=== PATIENT | female | born 1980 | race Caucasian/White ===

== ENCOUNTER 2018-04-10 10:57 | Emergency (ER) | payer SELFPAY ==
[2018-04-10 11:11] VITALS: BP 147/77
--- NOTE | 2018-04-10 11:12 | ER Document Report ---
HPI - HPI Patient complains to provider of: Right shoulder pain Onset: Last week Onset/Duration: Gradual, Persistent Pain Level: 4 Context: 37-year-old female complaining of right pain along the trapezius muscle for 1 month. Worse with movement. No radiculopathy Associated Symptoms: None Exacerbated by: Movement Relieved by: Denies Similar symptoms previously: No Recently seen / treated by doctor: No - ROS ROS below otherwise negative: Yes Systems Reviewed and Negative: Yes All other systems reviewed and negative Past Medical History - General Information source: Patient - Social History Smoking Status: Current Every Day Smoker Frequency of alcohol use: None Drug Abuse: None Lives with: Family Family History: Reviewed & Not Pertinent - Medical History Medical History: Negative Surgical Hx: Negative - Immunizations Hx Diphtheria, Pertussis, Tetanus Vaccination: No Vertical Provider Document - CONSTITUTIONAL Agree With Documented VS: Yes Exam Limitations: No Limitations - INFECTION CONTROL TRAVEL OUTSIDE OF THE [place] IN LAST 30 DAYS: No - HEENT HEENT: Normocephalic - NECK Neck: Supple - Very tender right trapezius - RESPIRATORY Respiratory: Breath Sounds Normal, No Respiratory Distress - CARDIOVASCULAR Cardiovascular: Regular Rate, Regular Rhythm - MUSCULOSKELETAL/EXTREMETIES Musculoskeletal/Extremeties: FROM, Tender - Right trapezius - NEURO Level of Consciousness: Alert Motor/Sensory: No Motor Deficit, No Sensory Deficit - DERM Integumentary: No Rash Course - Re-evaluation Re-evalutation: 04/10/18 21:16 I showed her how to do shoulder exercises and lay on a rolled towel to relax the shoulder muscles and it reduced her pain quite a bit. - Vital Signs Vital signs: Temp Pulse Resp BP Pulse Ox 98.7 F 80 20 147/77 H 99 04/10/18 11:09 04/10/18 11:09 04/10/18 11:09 04/10/18 11:09 04/10/18 11:09 Discharge - Discharge Clinical Impression: right trapezius muscle strain Condition: Good Disposition: HOME, SELF-CARE Instructions: Acetaminophen, Ibuprofen (General) ([facility]), Muscle Relaxers ([facility]), Myalagia (Muscle Pain) ([facility]), Warm Packs ([facility]) Additional Instructions: Shoulder range of motion and stretching as instructed Warm compress Massage Chiropractor Return to the emergency room any concerns Motrin Tylenol Flexeril as muscle relaxer Prescriptions: Ibuprofen 800 mg PO Q8HP PRN #30 tablet PRN Reason: Cyclobenzaprine HCl [Flexeril 10 Mg Tablet] 10 mg PO TIDP PRN #20 tablet PRN Reason: Forms: Return to Work Referrals: HEALTH DEPT,[facility] [NO LOCAL MD] - Follow up as needed [facility] [CHIROPRACTOR] - Follow up as needed
== END 2018-04-10 11:33 | disposition home or self-care (01) ==
LOC: ER 10:57
DX: S29.012A Strain of muscle and tendon of back wall of thorax, initial encounter (principal); M25.511 Pain in right shoulder; M54.6 Pain in thoracic spine; X58.XXXA Exposure to other specified factors, initial encounter; F17.200 Nicotine dependence, unspecified, uncomplicated
CPT/HCPCS: 99283

== ENCOUNTER 2018-08-09 14:57 | Emergency (ER) | payer MEDICAID ==
[2018-08-09 15:02] VITALS: BP 130/83
[2018-08-09] MEDS ORDERED: ACETAMINOPHEN 325 MG TABLET PO ONE (15:15)
--- NOTE | 2018-08-09 15:21 | ER Document Report ---
ED GI/ - General Chief Complaint: Urinary Problem Stated Complaint: DIFFICULTY WITH URINATION Time Seen by Provider: 08/09/18 15:11 Mode of Arrival: Ambulatory Information source: Patient Notes: Chief complaint: abdominal pain: History of complain:( obtained from----patient) 37 years old female presents today with frequency and burning sensation when urinating as well as 8 weeks . No nausea vomiting fever chills or other constitutional symptoms. Denies any pelvic pain or discharges. Onset: As above Duration: Gradual Severity: Continuous Quality: Burning Context: Possible UTI Exacerbating factor and relieving factors: REVIEW OF SYSTEMS: CONSTITUTIONAL : Denies fever, chills, or sweats. Denies recent illness. EENT: Denies eye, ear, throat, or mouth pain or symptoms. Denies nasal or sinus congestion or discharge. Denies throat, tongue, or mouth swelling or difficulty swallowing. CARDIOVASCULAR: Denies chest pain. Denies palpitations or racing or irregular heart beat. Denies ankle edema. RESPIRATORY: Denies cough, cold, or chest congestion. Denies shortness of breath, difficulty breathing, or wheezing. GASTROINTESTINAL: Denies distention. Denies nausea, vomiting, or diarrhea. Denies blood in vomitus, stools, or per rectum. Denies black, tarry stools. Denies constipation. GENITOURINARY: Denies difficulty urinating, painful urination, burning, frequency, blood in urine, or discharge. FEMALE GENITOURINARY: Denies vaginal bleeding, heavy or abnormal periods, irregular periods. Denies vaginal discharge or odor. MUSCULOSKELETAL: Denies back or neck pain or stiffness. Denies joint pain or swelling. SKIN: Denies rash, lesions or sores. HEMATOLOGIC : Denies easy bruising or bleeding. LYMPHATIC: Denies swollen, enlarged glands. NEUROLOGICAL: Denies confusion or altered mental status. Denies passing out or loss of consciousness. Denies dizziness or lightheadedness. Denies headache. Denies weakness or paralysis or loss of use of either side. Denies problems with gait or speech. Denies sensory loss, numbness, or tingling. Denies seizures. PSYCHIATRIC: Denies anxiety or stress. Denies depression, suicidal ideation, or homicidal ideation. ALL OTHER SYSTEMS REVIEWED AND NEGATIVE. PHYSICAL EXAMINATION: GENERAL: Well-appearing, well-nourished and in no acute distress. HEAD: Atraumatic, normocephalic. EYES: Pupils equal round and reactive to light, extraocular movements intact, conjunctiva are normal. ENT: Nares patent, oropharynx clear without exudates. Moist mucous membranes. NECK: Normal range of motion, supple without lymphadenopathy LUNGS: Breath sounds clear to auscultation bilaterally and equal. No wheezes rales or rhonchi. HEART: Regular rate and rhythm without murmurs ABDOMEN: Soft, nontender, nondistended abdomen. No guarding, no rebound. No masses appreciated. Female : deferred Musculoskeletal: Normal range of motion, no pitting or edema. No cyanosis. NEUROLOGICAL: Cranial nerves grossly intact. Normal speech, normal gait. Normal sensory, motor exams PSYCH: Normal mood, normal affect. SKIN: Warm, Dry, normal turgor, no rashes or lesions noted. Dictation was performed using [employer] voice recognition software TRAVEL OUTSIDE OF THE [place] IN LAST 30 DAYS: No - HPI Notes: 08/09/18 15:20 Dictated - Related Data Allergies/Adverse Reactions: No Known Allergies Allergy (Verified 08/09/18 14:58) Past Medical History - Social History Smoking Status: Never Smoker Frequency of alcohol use: Rare Drug Abuse: None Lives with: Family Family History: Reviewed & Not Pertinent Renal/ Medical History: Denies: Hx Peritoneal Dialysis - Immunizations Hx Diphtheria, Pertussis, Tetanus Vaccination: No Review of Systems - Review of Systems Notes: Dictated Physical Exam - Vital signs Vitals: Temp Pulse Resp BP Pulse Ox 98.4 F 90 20 130/83 H 97 08/09/18 15:01 08/09/18 15:01 08/09/18 15:01 08/09/18 15:01 08/09/18 15:01 - Notes Notes: Dictated Course - Vital Signs Vital signs: Temp Pulse Resp BP Pulse Ox 98.4 F 90 20 130/83 H 97 08/09/18 15:01 08/09/18 15:01 08/09/18 15:01 08/09/18 15:01 08/09/18 15:01 - Laboratory Laboratory results interpreted by me: 08/09/18 15:18 Urine Nitrite POSITIVE H Ur Leukocyte Esterase TRACE H Urine Ascorbic Acid 40 H Discharge - Discharge Clinical Impression: UTI (urinary tract infection) Qualifiers: Urinary tract infection type: acute cystitis Hematuria presence: without hematuria Qualified Code(s): N30.00 - Acute cystitis without hematuria Condition: Fair Disposition: HOME, SELF-CARE Instructions: Urinary Tract Infection ([facility]) Prescriptions: Nitrofurantoin Macrocrystal [Macrodantin] 100 mg PO Q6 #30 capsule
[2018-08-09 15:46] LABS: APPEARANCE,URINE CLOUDY; BILIRUBIN,URINE NEGATIVE (NEGATIVE); COLOR,URINE YELLOW; GLUCOSE, URINE NEGATIVE (NEGATIVE); KETONES,URINE NEGATIVE (NEGATIVE); LEUKOCYTE ESTERASE,URINE TRACE (NEGATIVE); NITRITE,URINE POSITIVE (NEGATIVE); PROTEIN,URINE NEGATIVE (NEGATIVE); URINE SPECIFIC GRAVITY 1.013; UROBILINOGEN,URINE NEGATIVE mg/dL (<2.0)
== END 2018-08-09 15:57 | disposition home or self-care (01) ==
LOC: ER 14:57
DX: O23.11 Infections of bladder in pregnancy, first trimester (principal); Z3A.08 8 weeks gestation of pregnancy
CPT/HCPCS: 99284; 81001; J3490

== ENCOUNTER 2018-08-10 07:40 | Emergency (ER) | payer MEDICAID ==
[2018-08-10 08:56] LABS: ABSOLUTE EOSINOPHILS # (AUTO) 0.2 10^3/uL (0.0-0.6); ABSOLUTE LYMPHOCYTES (AUTO) 1.2 10^3/uL (0.5-4.7); ABSOLUTE MONOCYTES (AUTO) 0.5 10^3/uL (0.1-1.4); ABSOLUTE NEUT (AUTO) 6.7 10^3/uL (1.7-8.2); BASOPHILS % (AUTO) 0.3 % (0-2); EOSINOPHILS % (AUTO) 1.9 % (0-6); HEMATOCRIT 37.9 % (36.0-47.0); HEMOGLOBIN 13.4 g/dL (12.0-15.5); LYMPHOCYTES % (AUTO) 13.9 % (13-45); MEAN CORPUSCULAR HGB CONC 35.5 g/dL (32.0-36.0); MEAN CORPUSCULAR VOLUME 93 fl (80-97); MONOCYTES % (AUTO) 5.4 % (3-13); PLATELET COUNT 243 10^3/uL (150-450); RED BLOOD COUNT 4.07 10^6/uL (3.72-5.28); SEGMENTED NEUTROPHILS % (AUTO) 78.5 % (42-78); TOTAL CELLS COUNTED % (AUTO) 100 %; WHITE BLOOD COUNT 8.5 10^3/uL (4.0-10.5)
[2018-08-10 09:14] LABS: ALANINE AMINOTRANSFERASE 15 U/L (9-52); ALBUMIN 3.6 g/dL (3.5-5.0); ALKALINE PHOSPHATASE 51 U/L (38-126); ANION GAP 12 (5-19); ASPARTATE AMINO TRANSFERASE 17 U/L (14-36); BILIRUBIN,DIRECT 0.1 mg/dL (0.0-0.4); BILIRUBIN,TOTAL 0.5 mg/dL (0.2-1.3); BLOOD UREA NITROGEN 6 mg/dL (7-20); CALCIUM 9.4 mg/dL (8.4-10.2); CARBON DIOXIDE 23 mmol/L (22-30); CHLORIDE 104 mmol/L (98-107); GLUCOSE 93 mg/dL (75-110); POTASSIUM 3.9 mmol/L (3.6-5.0); SODIUM 139.1 mmol/L (137-145); TOTAL PROTEIN 6.7 g/dL (6.3-8.2)
[2018-08-10 09:19] LABS: APPEARANCE,URINE CLEAR; BILIRUBIN,URINE NEGATIVE (NEGATIVE); COLOR,URINE YELLOW; GLUCOSE, URINE NEGATIVE (NEGATIVE); KETONES,URINE NEGATIVE (NEGATIVE); LEUKOCYTE ESTERASE,URINE NEGATIVE (NEGATIVE); NITRITE,URINE POSITIVE (NEGATIVE); PROTEIN,URINE NEGATIVE (NEGATIVE); UROBILINOGEN,URINE NEGATIVE mg/dL (<2.0)
[2018-08-10] MEDS ORDERED: CEPHALEXIN 500 MG CAPSULE PO ONE (09:56)
[2018-08-10] MEDS ORDERED: NORMAL SALINE 1000 ML 1,000 ML IV ONE (10:17)
--- NOTE | 2018-08-10 14:03 | RADIOLOGY REPORT (SQ) ---
EXAM DESCRIPTION: U/S RETROPERITON (RENAL/AORTA) COMPLETED DATE/TIME: 08/10/2018 1:40 pm REASON FOR STUDY: urinary retention COMPARISON: None. TECHNIQUE: Dynamic and static grayscale images acquired of the kidneys and bladder and recorded on P ACS. Additional selected color Doppler and spectral images recorded. LIMITATIONS: None. FINDINGS: RIGHT KIDNEY: Normal size, 12 cm in length. Normal echogenicity. No solid or suspicious ma sses. No hydronephrosis. No calcifications. 1.7 cm right upper pole renal cortical cyst. LEFT KIDNEY: Normal size, 11 cm in length. Normal echogenicity. No solid or suspicious masses. No h ydronephrosis. No calcifications. 1.3 cm left midpole renal cortical cyst. BLADDER: العراقي catheter decompresses the bladder. Gravid uterus identified OTHER FINDINGS: No other significant finding. IMPRESSION: No hydronephrosis. Bladder not well-visualized due to decompression with العراقي catheter TECHNICAL DOCUMENTATION: JOB ID: [id number] [employer]- All Rights Reserved Reading location - IP/workstation name: [email or web address]
--- NOTE | 2018-08-10 14:28 | ER Document Report ---
ED GI/ - General Chief Complaint: Inability to Void Stated Complaint: URINARY PROBLEM Time Seen by Provider: 08/10/18 07:55 Mode of Arrival: Ambulatory Information source: Patient Notes: Patient is a 37-year-old female 10 weeks who presents to the ER today for urinary retention, patient was seen yesterday, diagnosed with a urinary tract infection, sent home on Macrobid. Patient states that she has not been able to urinate since 6 PM last night. The only medications that she is taking her vitamins and Zantac that she started approximately 4 days ago. Patient states that she is on this for acid reflux which only really bothers her during . She admits to some lower abdominal pressure due to feeling like she has a lot of urine in her bladder but denies any low back pain , fever, chills, nausea or vomiting, diarrhea. Her last bowel movement was yesterday and normal. TRAVEL OUTSIDE OF THE [place] IN LAST 30 DAYS: No - Related Data Allergies/Adverse Reactions: No Known Allergies Allergy (Verified 08/10/18 07:43) Past Medical History - General Information source: Patient - Social History Smoking Status: Former Smoker Chew tobacco use (# tins/day): No Frequency of alcohol use: None Drug Abuse: None Family History: Reviewed & Not Pertinent Patient has suicidal ideation: No Patient has homicidal ideation: No Renal/ Medical History: Denies: Hx Peritoneal Dialysis - Immunizations Hx Diphtheria, Pertussis, Tetanus Vaccination: No Review of Systems - Review of Systems Constitutional: No symptoms reported EENT: No symptoms reported Cardiovascular: No symptoms reported Respiratory: No symptoms reported Gastrointestinal: See HPI Genitourinary: No symptoms reported Female Genitourinary: No symptoms reported Musculoskeletal: No symptoms reported Skin: No symptoms reported Hematologic/Lymphatic: No symptoms reported Neurological/Psychological: No symptoms reported Physical Exam - Vital signs Vitals: Temp Pulse Resp BP Pulse Ox 97.7 F 89 18 131/87 H 97 08/10/18 07:45 08/10/18 07:45 08/10/18 07:45 08/10/18 07:45 08/10/18 07:45 - Notes Notes: PHYSICAL EXAMINATION: GENERAL: Well-appearing and in no acute distress. HEAD: Atraumatic, normocephalic. EYES: Pupils equal round and reactive to light, extraocular movements intact, sclera anicteric, conjunctiva are normal. NECK: Normal range of motion, supple without lymphadenopathy LUNGS: CTAB and equal. No wheezes rales or rhonchi. HEART: Regular rate and rhythm without murmurs ABDOMEN: Soft, distention and hypogastric tenderness. No guarding, no rebound BACK: no vertebral tenderness, normal ROM GI/: no CVA tenderness EXTREMITIES: Normal range of motion, no pitting edema. No cyanosis. NEUROLOGICAL: Cranial nerves grossly intact. Normal sensory/motor exams. PSYCH: Normal mood, normal affect. SKIN: Warm, Dry, normal turgor, no rashes or lesions noted Course - Re-evaluation Re-evalutation: 08/10/18 18:16 Labs are unremarkable today except for nitrites in her urine, no leukocytes, no blood, over 1000 mL of urine was relieved from her bladder with straight cath today. Patient was given IV fluids, however still cannot urinate and has the urgency to go. Patient had a Grant catheter placed for this reason. Patient had renal ultrasound which revealed no acute abnormality. Patient was given urology follow-up, however states "I am not going to follow-up from just going to come back here in a couple days to have it rechecked. I told patient that she was always welcome to come back here to have Grant catheter removed and urinalysis. - Vital Signs Vital signs: Temp Pulse Resp BP Pulse Ox 99.1 F 67 16 109/63 97 08/10/18 15:16 08/10/18 15:16 08/10/18 15:16 08/10/18 15:16 08/10/18 15:16 - Laboratory Result Diagrams: 08/10/18 08:42 08/10/18 08:42 Laboratory results interpreted by me: 08/10/18 08/10/18 08/10/18 08:25 08:42 08:42 Seg Neutrophils % 78.5 H BUN 6 L Beta HCG, Quant 876574.00 H Urine Nitrite POSITIVE H Discharge - Discharge Clinical Impression: UTI (urinary tract infection) Qualifiers: Urinary tract infection type: site unspecified Hematuria presence: without hematuria Qualified Code(s): N39.0 - Urinary tract infection, site not specified Condition: Stable Disposition: HOME, SELF-CARE Instructions: Cephalexin ([facility]) Additional Instructions: Return immediately for any new or worsening symptoms. Follow up here in 2 days to have grant removed and urine checked. Prescriptions: Cephalexin Monohydrate [Keflex 500 mg Capsule] 500 mg PO BID 5 Days #10 capsule Famotidine [Pepcid 20 mg Tablet] 20 mg PO DAILY #30 tablet Forms: Return to Work Referrals: [facility] [Provider Group] - Follow up as needed
[2018-08-10 15:34] VITALS: BP 109/63
== END 2018-08-10 15:50 | disposition home or self-care (01) ==
LOC: ER 07:40
DX: N39.0 Urinary tract infection, site not specified (principal); R33.9 Retention of urine, unspecified
CPT/HCPCS: 99284; 96360; 51701; 51702; 36415; 84702; 85025; 80053; 81001; 76770; J7030

== ENCOUNTER 2018-08-12 13:05 | Emergency (ER) | payer MEDICAID ==
--- NOTE | 2018-08-12 13:29 | ER Document Report ---
HPI - HPI Patient complains to provider of: العراقي catheter removal Pain Level: Denies Context: Patient is a 37-year-old female presenting to the emergency room for العراقي catheter removal. Patient was to the emergency room 2 days ago for urinary retention. العراقي was placed at that time and has been in ever since. Patient was instructed to follow-up with urology or primary care provider for which she stated she did not have either, she also does not have insurance which is why she presents to the emergency room. Patient states she is 10 weeks . Patient states she has been taking Keflex as prescribed, no longer has any dysuria or abdominal pain. States she feels the urge to urinate with العراقي in place. Denies abdominal pain, back pain, nausea, vomiting, fever. Past medical history: None Medications: None Allergies: None - CONSTITUTIONAL Constitutional: DENIES: Fever, Chills Past Medical History - General Information source: Patient - Social History Smoking Status: Never Smoker Chew tobacco use (# tins/day): No Drug Abuse: None Lives with: Family Family History: Reviewed & Not Pertinent Patient has suicidal ideation: No Patient has homicidal ideation: No Renal/ Medical History: Denies: Hx Peritoneal Dialysis - Immunizations Hx Diphtheria, Pertussis, Tetanus Vaccination: No Vertical Provider Document - CONSTITUTIONAL Agree With Documented VS: Yes Notes: GENERAL: Alert, interacts well. No acute distress. HEAD: Normocephalic, atraumatic. EYES: Pupils equal, round, and reactive to light. Extraocular movements intact. ENT: Oral mucosa moist, tongue midline. NECK: Full range of motion. Supple. Trachea midline. LUNGS: Clear to auscultation bilaterally, no wheezes, rales, or rhonchi. No respiratory distress. HEART: Regular rate and rhythm. No murmur ABDOMEN: Soft, non-tender. Non-distended. Bowel sounds present in all 4 quadrants. EXTREMITIES: Moves all 4 extremities spontaneously. No edema, normal radial and dorsalis pedis pulses bilaterally. No cyanosis. BACK: no cervical, thoracic, lumbar midline tenderness. No saddle anesthesia, normal distal neurovascular exam. No CVA tenderness bilaterally NEUROLOGICAL: Alert and oriented x3. Normal speech. cranial nerves II through XII grossly intact. PSYCH: Normal affect, normal mood. SKIN: Warm, dry, normal turgor. No rashes or lesions noted. - INFECTION CONTROL TRAVEL OUTSIDE OF THE [place] IN LAST 30 DAYS: No Course - Re-evaluation Re-evalutation: 08/12/18 13:28 Urine from visit 2 days ago does not appear to have been sent for culture. Urinalysis today will be sent for culture. العراقي was removed by nursing staff with no complications. Patient able to pass urine with no difficulties. Patient continues to deny dysuria or vaginal discharge. Current urine shows no infection, will send for culture. Discussed with patient need to continue antibiotics. Return precautions discussed. - Vital Signs Vital signs: Temp Pulse Resp BP Pulse Ox 98.5 F 85 16 132/79 H 98 08/12/18 13:08 08/12/18 13:08 08/12/18 13:08 08/12/18 13:08 08/12/18 13:08 Discharge - Discharge Clinical Impression: Encounter for العراقي catheter removal Condition: Stable Disposition: HOME, SELF-CARE Additional Instructions: As we discussed you have been seen and treated in the emergency room for a العراقي catheter removal. Your urine currently shows no signs of infection. You need to continue to take the antibiotics as prescribed until you finish them. Please return to the emergency room for any other concerning symptoms.
[2018-08-12 14:44] LABS: APPEARANCE,URINE CLOUDY; BILIRUBIN,URINE NEGATIVE (NEGATIVE); COLOR,URINE STRAW; GLUCOSE, URINE NEGATIVE (NEGATIVE); KETONES,URINE NEGATIVE (NEGATIVE); LEUKOCYTE ESTERASE,URINE NEGATIVE (NEGATIVE); NITRITE,URINE NEGATIVE (NEGATIVE); PROTEIN,URINE NEGATIVE (NEGATIVE); URINE SPECIFIC GRAVITY 1.003; UROBILINOGEN,URINE NEGATIVE mg/dL (<2.0)
[2018-08-12 15:11] VITALS: BP 128/76
== END 2018-08-12 15:10 | disposition home or self-care (01) ==
LOC: ER 13:05
DX: Z46.6 Encounter for fitting and adjustment of urinary device (principal)
CPT/HCPCS: 81001; 87086; 87088; 87186; 99283

== ENCOUNTER 2018-12-25 10:37 | Outpatient (CLI) | payer MEDICAID ==
[2018-12-25] MEDS ORDERED: ACETAMINOPHEN 325 MG TABLET PO PRN (10:42)
[2018-12-25] MEDS ORDERED: ACETAMINOPHEN 325 MG TABLET ONE (11:11)
[2018-12-25 11:25] LABS: APPEARANCE,URINE CLOUDY; BILIRUBIN,URINE NEGATIVE (NEGATIVE); COLOR,URINE YELLOW; GLUCOSE, URINE NEGATIVE (NEGATIVE); KETONES,URINE NEGATIVE (NEGATIVE); LEUKOCYTE ESTERASE,URINE SMALL (NEGATIVE); NITRITE,URINE NEGATIVE (NEGATIVE); PROTEIN,URINE NEGATIVE (NEGATIVE); URINE SPECIFIC GRAVITY 1.004; UROBILINOGEN,URINE NEGATIVE mg/dL (<2.0)
[2018-12-25 11:36] LABS: URINE AMPHETAMINES SCREEN NEGATIVE; URINE BARBITURATES SCREEN NEGATIVE; URINE BENZODIAZEPINES SCREEN NEGATIVE; URINE COCAINE SCREEN NEGATIVE; URINE MARIJUANA (THC) SCREEN NEGATIVE; URINE METHADONE SCREEN NEGATIVE; URINE PHENCYCLIDINE SCREEN NEGATIVE
[2018-12-25 11:36] LABS: HEMATOCRIT 32.3 % (36.0-47.0); HEMOGLOBIN 10.8 g/dL (12.0-15.5); MEAN CORPUSCULAR HEMOGLOBIN 29.9 pg (27.0-33.4); MEAN CORPUSCULAR HGB CONC 33.6 g/dL (32.0-36.0); MEAN CORPUSCULAR VOLUME 89 fl (80-97); PLATELET COUNT 258 10^3/uL (150-450); RED BLOOD COUNT 3.63 10^6/uL (3.72-5.28); RED CELL DISTRIBUTION WIDTH 14.2 % (11.5-14.0); WHITE BLOOD COUNT 8.2 10^3/uL (4.0-10.5)
[2018-12-25 11:40] LABS: UR PRO/CREAT RATIO RESULT 0.5 mg/mg (0.0-0.2); URINE CREATININE 55.8 mg/dL (16-327); URINE PROTEIN 29.6 mg/dL (<12)
[2018-12-25 11:58] LABS: ALANINE AMINOTRANSFERASE 17 U/L (9-52); ALBUMIN 2.9 g/dL (3.5-5.0); ALKALINE PHOSPHATASE 146 U/L (38-126); ANION GAP 7 (5-19); ASPARTATE AMINO TRANSFERASE 15 U/L (14-36); BILIRUBIN,DIRECT 0.1 mg/dL (0.0-0.4); BILIRUBIN,TOTAL 0.6 mg/dL (0.2-1.3); BLOOD UREA NITROGEN 2 mg/dL (7-20); CALCIUM 9.2 mg/dL (8.4-10.2); CARBON DIOXIDE 22 mmol/L (22-30); CHLORIDE 106 mmol/L (98-107); GLUCOSE 85 mg/dL (75-110); POTASSIUM 3.5 mmol/L (3.6-5.0); SODIUM 135.3 mmol/L (137-145); TOTAL PROTEIN 5.9 g/dL (6.3-8.2); URIC ACID 4.2 mg/dL (2.5-7.0)
== END 2018-12-25 13:05 | disposition home or self-care (01) ==
LOC: LC 10:37
PROVIDERS: ATTEND Obstetrics & Gynecology
PROC: 4A1HXCZ Monitoring of Products of Conception, Cardiac Rate, External Approach (ICD-10-PCS; principal; 2018-12-25)
DX: O14.93 Unspecified pre-eclampsia, third trimester (principal); O09.523 Supervision of elderly multigravida, third trimester; Z3A.31 31 weeks gestation of pregnancy
CPT/HCPCS: 81001; 59025; 36415; 83615; 84156; 84550; 82570; 85027; 80053; 80307; J3490

== ENCOUNTER 2018-12-28 14:10 | Outpatient (CLI) | payer MEDICAID | END 2018-12-28 14:45 | disposition home or self-care (01) | LOC: LC 14:10 | PROVIDERS: ATTEND Obstetrics & Gynecology | DX: O47.03 False labor before 37 completed weeks of gestation, third trimester (principal); Z3A.31 31 weeks gestation of pregnancy ==

== ENCOUNTER 2019-01-04 11:14 | Outpatient (CLI) | payer MEDICAID ==
[2019-01-04 12:50] LABS: APPEARANCE,URINE SLIGHTLY-CLOUDY; BILIRUBIN,URINE NEGATIVE (NEGATIVE); COLOR,URINE YELLOW; GLUCOSE, URINE NEGATIVE (NEGATIVE); KETONES,URINE NEGATIVE (NEGATIVE); LEUKOCYTE ESTERASE,URINE SMALL (NEGATIVE); NITRITE,URINE NEGATIVE (NEGATIVE); PROTEIN,URINE NEGATIVE (NEGATIVE); URINE SPECIFIC GRAVITY 1.004; UROBILINOGEN,URINE NEGATIVE mg/dL (<2.0)
[2019-01-04 13:00] LABS: ABSOLUTE EOSINOPHILS # (AUTO) 0.2 10^3/uL (0.0-0.6); ABSOLUTE LYMPHOCYTES (AUTO) 1.5 10^3/uL (0.5-4.7); ABSOLUTE MONOCYTES (AUTO) 0.7 10^3/uL (0.1-1.4); ABSOLUTE NEUT (AUTO) 5.9 10^3/uL (1.7-8.2); BASOPHILS % (AUTO) 0.3 % (0-2); HEMATOCRIT 27.9 % (36.0-47.0); HEMOGLOBIN 9.5 g/dL (12.0-15.5); LYMPHOCYTES % (AUTO) 17.7 % (13-45); MEAN CORPUSCULAR HEMOGLOBIN 29.6 pg (27.0-33.4); MEAN CORPUSCULAR HGB CONC 34.1 g/dL (32.0-36.0); MEAN CORPUSCULAR VOLUME 87 fl (80-97); MONOCYTES % (AUTO) 8.3 % (3-13); PLATELET COUNT 226 10^3/uL (150-450); RED BLOOD COUNT 3.21 10^6/uL (3.72-5.28); RED CELL DISTRIBUTION WIDTH 14.4 % (11.5-14.0); SEGMENTED NEUTROPHILS % (AUTO) 70.7 % (42-78); TOTAL CELLS COUNTED % (AUTO) 100 %; WHITE BLOOD COUNT 8.3 10^3/uL (4.0-10.5)
--- NOTE | 2019-01-04 13:01 | Non Stress Test Report ---
Non Stress Test Datetime Report Generated by CPN: 01/04/2019 13:01 DEMOGRAPHIC EGA NST: 32.5 INDICATION Indication for Study: Ordered by Provider MONITORING Monitor Explained: Monitor Explained; Test Explained; Patient Verbalized Understanding Time on Monitor: 01/04/2019 11:27 Time off Monitor: 01/04/2019 12:47 NST Duration: 80 NST INTERVENTIONS NST Interventions: None Physician Notified NST: P. rivera, CNM BABY A: [id number] BABY A Movement : Present FHR Baseline : 135 Accelerations : 15X15 Decelerations : None Variability : Moderate 6-25bpm NST Review: Meets Criteria for Reactive NST NST Review and Verified By : Manuela Camp RNC NST Results: Reactive BABY B Movement: Present FHR Baseline: 130 Accelerations: 15X15 Decelerations: None Variability: Moderate 6-25bpm NST Review: Meets Criteria for Reactive NST NST Reviewed And Verified By: Manuela Camp RNC NST Results: Reactive NST REPORT Report Trigger: Send Report
[2019-01-04 13:16] LABS: URINE AMPHETAMINES SCREEN NEGATIVE; URINE BARBITURATES SCREEN NEGATIVE; URINE BENZODIAZEPINES SCREEN NEGATIVE; URINE COCAINE SCREEN NEGATIVE; URINE MARIJUANA (THC) SCREEN NEGATIVE; URINE METHADONE SCREEN NEGATIVE; URINE PHENCYCLIDINE SCREEN NEGATIVE
[2019-01-04 13:24] LABS: UR PRO/CREAT RATIO RESULT 0.6 mg/mg (0.0-0.2); URINE CREATININE 36.5 mg/dL (16-327); URINE PROTEIN 22.3 mg/dL (<12)
[2019-01-04 13:26] LABS: ALANINE AMINOTRANSFERASE 23 U/L (9-52); ALBUMIN 2.5 g/dL (3.5-5.0); ALKALINE PHOSPHATASE 156 U/L (38-126); ASPARTATE AMINO TRANSFERASE 13 U/L (14-36); BILIRUBIN,DIRECT 0.2 mg/dL (0.0-0.4); BILIRUBIN,TOTAL 0.4 mg/dL (0.2-1.3); CALCIUM 8.8 mg/dL (8.4-10.2); CARBON DIOXIDE 22 mmol/L (22-30); CHLORIDE 109 mmol/L (98-107); GLUCOSE 75 mg/dL (75-110); POTASSIUM 3.4 mmol/L (3.6-5.0); SODIUM 134.5 mmol/L (137-145); TOTAL PROTEIN 5.2 g/dL (6.3-8.2); URIC ACID 3.6 mg/dL (2.5-7.0)
[2019-01-04 13:31] LABS: BLOOD UREA NITROGEN < 2 mg/dL (7-20)
[2019-01-04 13:42] LABS: ANION GAP 4 (5-19)
== END 2019-01-04 13:55 | disposition home or self-care (01) ==
LOC: LC 11:14
PROVIDERS: ATTEND Specialist
PROC: 4A1HXCZ Monitoring of Products of Conception, Cardiac Rate, External Approach (ICD-10-PCS; principal; 2019-01-04)
DX: O14.93 Unspecified pre-eclampsia, third trimester (principal); O09.523 Supervision of elderly multigravida, third trimester; Z3A.32 32 weeks gestation of pregnancy
CPT/HCPCS: 36415; 59025; 80053; 80307; 81001; 82570; 83615; 84156; 84550; 85025

== ENCOUNTER 2019-01-06 22:43 | Outpatient (CLI) | payer MEDICAID ==
[2019-01-06 23:52] LABS: URINE AMPHETAMINES SCREEN NEGATIVE; URINE BARBITURATES SCREEN NEGATIVE; URINE BENZODIAZEPINES SCREEN NEGATIVE; URINE COCAINE SCREEN NEGATIVE; URINE MARIJUANA (THC) SCREEN NEGATIVE; URINE METHADONE SCREEN NEGATIVE; URINE PHENCYCLIDINE SCREEN NEGATIVE
[2019-01-06] MEDS ORDERED: ACETAMINOPHEN 325 MG TABLET ONE (23:58)
[2019-01-06] MEDS ORDERED: ONDANSETRON 4 MG TAB.RAPDIS ONE (23:58)
[2019-01-06] MEDS ORDERED: ONDANSETRON 4 MG TAB.RAPDIS PO ONE (23:59)
[2019-01-06] MEDS ORDERED: ACETAMINOPHEN 325 MG TABLET PO ONE (23:59)
[2019-01-07 00:04] LABS: ABSOLUTE EOSINOPHILS # (AUTO) 0.2 10^3/uL (0.0-0.6); ABSOLUTE LYMPHOCYTES (AUTO) 1.1 10^3/uL (0.5-4.7); ABSOLUTE MONOCYTES (AUTO) 0.6 10^3/uL (0.1-1.4); ABSOLUTE NEUT (AUTO) 5.9 10^3/uL (1.7-8.2); BASOPHILS % (AUTO) 0.5 % (0-2); EOSINOPHILS % (AUTO) 2.4 % (0-6); HEMATOCRIT 29.7 % (36.0-47.0); HEMOGLOBIN 10.1 g/dL (12.0-15.5); LYMPHOCYTES % (AUTO) 14.3 % (13-45); MEAN CORPUSCULAR HEMOGLOBIN 29.2 pg (27.0-33.4); MEAN CORPUSCULAR HGB CONC 33.9 g/dL (32.0-36.0); MEAN CORPUSCULAR VOLUME 86 fl (80-97); MONOCYTES % (AUTO) 7.2 % (3-13); PLATELET COUNT 232 10^3/uL (150-450); RED BLOOD COUNT 3.46 10^6/uL (3.72-5.28); RED CELL DISTRIBUTION WIDTH 15.3 % (11.5-14.0); SEGMENTED NEUTROPHILS % (AUTO) 75.6 % (42-78); TOTAL CELLS COUNTED % (AUTO) 100 %; WHITE BLOOD COUNT 7.8 10^3/uL (4.0-10.5)
[2019-01-07 00:05] LABS: APPEARANCE,URINE CLOUDY; BILIRUBIN,URINE NEGATIVE (NEGATIVE); COLOR,URINE YELLOW; GLUCOSE, URINE NEGATIVE (NEGATIVE); KETONES,URINE NEGATIVE (NEGATIVE); LEUKOCYTE ESTERASE,URINE LARGE (NEGATIVE); NITRITE,URINE NEGATIVE (NEGATIVE); PROTEIN,URINE NEGATIVE (NEGATIVE); URINE SPECIFIC GRAVITY 1.009; UROBILINOGEN,URINE NEGATIVE mg/dL (<2.0)
[2019-01-07 00:24] LABS: ALANINE AMINOTRANSFERASE 17 U/L (9-52); ALBUMIN 2.7 g/dL (3.5-5.0); ALKALINE PHOSPHATASE 169 U/L (38-126); ANION GAP 5 (5-19); ASPARTATE AMINO TRANSFERASE 15 U/L (14-36); BILIRUBIN,DIRECT 0.2 mg/dL (0.0-0.4); BILIRUBIN,TOTAL 0.7 mg/dL (0.2-1.3); BLOOD UREA NITROGEN 4 mg/dL (7-20); CALCIUM 9.2 mg/dL (8.4-10.2); CARBON DIOXIDE 24 mmol/L (22-30); CHLORIDE 106 mmol/L (98-107); GLUCOSE 102 mg/dL (75-110); POTASSIUM 3.7 mmol/L (3.6-5.0); SODIUM 134.9 mmol/L (137-145); TOTAL PROTEIN 5.6 g/dL (6.3-8.2); URIC ACID 4.4 mg/dL (2.5-7.0)
[2019-01-07] MEDS ORDERED: ONDANSETRON 4 MG TAB.RAPDIS PO ONE (01:00)
[2019-01-07 01:46] LABS: BACTERIA (WET MOUNT) 4+ BACTERIA SEEN; EPITHELIALS (WET MOUNT) 4+ EPITHELIALS SEEN; RBCS (WET MOUNT) NO RBCS SEEN; T.VAGINALIS (WET MOUNT) NO TRICHOMONAS SEEN; WBCS (WET MOUNT) 3+ WBCS SEEN; YEAST (WET MOUNT) NO YEAST SEEN
[2019-01-07] MEDS ORDERED: CYCLOBENZAPRINE HCL 10 MG TABLET ONE (01:50)
[2019-01-07] MEDS ORDERED: CYCLOBENZAPRINE HCL 10 MG TABLET PO ONE (02:00)
== END 2019-01-07 02:15 | disposition home or self-care (01) ==
LOC: LC 22:43
PROVIDERS: ATTEND Obstetrics & Gynecology
PROC: 4A1HXCZ Monitoring of Products of Conception, Cardiac Rate, External Approach (ICD-10-PCS; principal; 2019-01-06)
DX: O47.03 False labor before 37 completed weeks of gestation, third trimester (principal); O23.43 Unspecified infection of urinary tract in pregnancy, third trimester; O09.523 Supervision of elderly multigravida, third trimester; Z3A.33 33 weeks gestation of pregnancy
CPT/HCPCS: 59025; 36415; 87086; 87210; 83615; 84550; 85025; 87088; 80053; 81001; 87186; 80307; J3490 ×2; S0119

== ENCOUNTER 2019-01-11 09:55 | Outpatient (CLI) | payer MEDICAID ==
--- NOTE | 2019-01-11 10:04 | Non Stress Test Report ---
Non Stress Test Datetime Report Generated by CPN: 01/11/2019 10:03 INDICATION Indication for Study: Ordered by Provider URINE RESULTS Urine Protein, NST: Negative Urine Ketones - NST: Negative Urine Glucose - NST: Negative Urine Blood - NST: Positive MONITORING Monitor Explained: Monitor Explained; Test Explained; Patient Verbalized Understanding Time off Monitor: 01/07/2019 01:13 NST INTERVENTIONS NST Interventions: PO Hydration; Reposition Patient Physician Notified NST: Dr. Kyle BABY A: [id number] BABY A Movement : Present Contraction Frequency : Occasional FHR Baseline : 135 Accelerations : 15X15 Decelerations : None Variability : Moderate 6-25bpm NST Review: Meets Criteria for Reactive NST NST Review and Verified By : Dominik Mercado RN NST Results: Reactive BABY B Movement: Present FHR Baseline: 130 Accelerations: 15X15 Decelerations: None Variability: Moderate 6-25bpm NST Review: Meets Criteria for Reactive NST NST Reviewed And Verified By: Dominik Mercado RN NST Results: Reactive NST REPORT Report Trigger: Send Report
== END 2019-01-11 11:50 | disposition home or self-care (01) ==
LOC: LC 09:55
PROVIDERS: ATTEND Obstetrics & Gynecology
PROC: 4A1HXCZ Monitoring of Products of Conception, Cardiac Rate, External Approach (ICD-10-PCS; principal; 2019-01-11)
DX: Z34.93 Encounter for supervision of normal pregnancy, unspecified, third trimester (principal)

== ENCOUNTER 2019-11-13 14:40 | Emergency (ER) | payer MEDICAID ==
--- NOTE | 2019-11-13 15:25 | ER Document Report ---
HPI - HPI Patient complains to provider of: cough fever body aches Time Seen by Provider: 11/13/19 15:16 Onset: Other - Tuesday Onset/Duration: Persistent Quality of pain: Achy Context: 38-year-old female relatively healthy presents emergency department with complaints of body aches fever and cough since Tuesday. Denies vomiting diarrhea. Reports she is able to drink fluids but solid food makes her nauseated. Patient did not receive her flu vaccine. No recent trips. Patient took Tylenol prior to arrival Associated Symptoms: Body/muscle aches, Nonproductive cough, Fever Exacerbated by: Denies Relieved by: Denies Similar symptoms previously: No Recently seen / treated by doctor: No Past Medical History - General Information source: Patient Last Menstrual Period: Last week - Social History Smoking Status: Current Every Day Smoker Cigarette use (# per day): Yes Frequency of alcohol use: None Drug Abuse: None Lives with: Family Family History: Reviewed & Not Pertinent Patient has suicidal ideation: No Patient has homicidal ideation: No - Medical History Medical History: Negative Renal/ Medical History: Denies: Hx Peritoneal Dialysis Surgical Hx: Negative - Immunizations Hx Diphtheria, Pertussis, Tetanus Vaccination: No Vertical Provider Document - CONSTITUTIONAL Agree With Documented VS: Yes Exam Limitations: No Limitations General Appearance: WD/WN, No Apparent Distress - INFECTION CONTROL TRAVEL OUTSIDE OF THE [place] IN LAST 30 DAYS: No - HEENT HEENT: Atraumatic, Normal ENT Exam, Normocephalic, PERRLA. negative: Conjuctival Injection, Pharyngeal Erythema, Tympanic Membrane Bulging - NECK Neck: Normal Inspection, Supple. negative: Lymphadenopathy-Left, Lymphadenopathy-Right - RESPIRATORY Respiratory: Breath Sounds Normal, No Respiratory Distress - CARDIOVASCULAR Cardiovascular: Regular Rate, Regular Rhythm - GI/ABDOMEN Gastrointestinal: Abdomen Soft, Abdomen Non-Tender - MUSCULOSKELETAL/EXTREMETIES Musculoskeletal/Extremeties: MAEW, FROM - NEURO Level of Consciousness: Awake, Alert, Appropriate Motor/Sensory: No Motor Deficit - DERM Integumentary: Warm, Dry Course - Re-evaluation Re-evalutation: 11/13/19 15:23 Patient presents to the emergency department with body aches fever cough since Tuesday. Has not received her flu vaccine. She took Tylenol prior to arrival. Influenza test and chest x-ray ordered. 11/13/19 16:12 Chest X-Ray 11/13/19 15:21 IMPRESSION: NO ACUTE RADIOGRAPHIC FINDING IN THE CHEST. 11/13/19 17:12 Laboratory 11/13/19 16:15 Influenza A (Rapid) POSITIVE Influenza B (Rapid) NEGATIVE 11/13/19 17:16 Influenza A noted. No pneumonia noted. Respiratory rate even unlabored no retractions. Patient instructed on results Tamiflu prescription ordered through [employer]. Patient was instructed good handwashing return for concerns follow-up with her primary care. She verbalized understanding. - Vital Signs Vital signs: Temp Pulse Resp BP Pulse Ox 99.8 F 82 14 134/77 H 97 11/13/19 14:53 11/13/19 14:53 11/13/19 14:53 11/13/19 14:53 11/13/19 14:53 - Diagnostic Test Radiology reviewed: Reports reviewed Discharge - Discharge Clinical Impression: Cough, Body aches, Influenza A Fever Qualifiers: Fever type: unspecified Qualified Code(s): R50.9 - Fever, unspecified Condition: Stable Disposition: HOME, SELF-CARE Instructions: Fever ([facility]), Use of [id number] Ibuprofen ([facility]), Influenza ([facility]) Additional Instructions: *You have been evaluated for cough, fever, body aches, influenza *Increase fluid intake as discussed *Your flu test was positive for influenza A. Your chest x-ray was negative for pneumonia *Monitor your temperature, take Tylenol or Motrin as indicated *Follow up with a primary care provider within 1 week for recheck *Return to ED for worsening condition, changes, needs Monitor your blood pressure. Your blood pressure was elevated today. This may be because you were anxious, in pain or because you need medication. It is important to follow up with your primary care provider for full evaluation. Prescriptions: Oseltamivir Phosphate [Tamiflu 75 mg Capsule] 75 mg PO BID #10 capsule Forms: Elevated Blood Pressure
--- NOTE | 2019-11-13 15:49 | RADIOLOGY REPORT (SQ) ---
EXAM DESCRIPTION: CHEST 2 VIEWS COMPLETED DATE/TIME: 11/13/2019 3:36 pm REASON FOR STUDY: cough fever COMPARISON: None. EXAM PARAMETERS: NUMBER OF VIEWS: two views TECHNIQUE: Digital Frontal and Lateral radiographic views of the chest acquired. RADIATION DOSE: NA LIMITATIONS: none FINDINGS: LUNGS AND PLEURA: No opacities, masses or pneumothorax. No pleural effusion. MEDIASTINUM AND HILAR STRUCTURES: No masses or contour abnormalities. HEART AND VASCULAR STRUCTURES: Heart normal size. No evidence for failure. BONES: No acute findings. HARDWARE: None in the chest. OTHER: No other significant finding. IMPRESSION: NO ACUTE RADIOGRAPHIC FINDING IN THE CHEST. TECHNICAL DOCUMENTATION: JOB ID: [id number] 2011 [employer]- All Rights Reserved Reading location - IP/workstation name: [email or web address]
[2019-11-13 17:06] LABS: A TYPE INFLUENZA AG POSITIVE (NEGATIVE); B INFLUENZA AG NEGATIVE (NEGATIVE)
[2019-11-13 21:42] VITALS: BP 130/70
== END 2019-11-13 17:18 | disposition home or self-care (01) ==
LOC: ER 14:40
DX: J10.1 Influenza due to other identified influenza virus with other respiratory manifestations (principal); R05 Cough; R50.9 Fever, unspecified; M79.10 Myalgia, unspecified site; F17.210 Nicotine dependence, cigarettes, uncomplicated
CPT/HCPCS: 71046; 87804; 99283